=== PATIENT | male | born 1935 | race Caucasian/White ===

== ENCOUNTER 2016-12-08 06:16 | Inpatient (IN) | payer MEDICARE, BC ==
[2016-11-10 11:10] VITALS: BMI 33.7
[2016-11-17 11:14] VITALS: BP_SYST 142; RESP 20; TEMP 99.7
[2016-11-17 11:16] VITALS: Ht 160 cm; Wt 86.2 kg
[2016-12-08] VITALS (19 sets, daily range): BP systolic 90–144; RESP 16–22; TEMP 97.2–100.5
[~2016-12-08] VITALS: Ht 160 cm; Wt 86.2 kg
[2016-12-08] MEDS ORDERED: TRANEXAMIC ACID IV ONE ×4 (06:25)
[2016-12-08] MEDS ORDERED: ROPIVACAINE 0.5% 134 MG, EPINEPHrine 1:1,000 0.2 MG, KETOROLAC INJ 30 MG, HYDROMORPHONE... SUBQ ONE ×4 (06:25)
[2016-12-08] MEDS ORDERED: SODIUM CHLORIDE 0.9% IV ONE ×4 (06:25)
[2016-12-08] MEDS ORDERED: LACT RINGERS 1,000 ML IV SCH ×2 (06:30→08:50)
[2016-12-08] MEDS ORDERED: LIDOCAINE 1% BUFFERED 1 ML SYR INTRADERM PRN (06:30)
[2016-12-08] MEDS ORDERED: GLYCOPYRROLATE 0.2 MG/ML VIAL IV ONE (06:30)
[2016-12-08] MEDS ORDERED: MIDAZOLAM 2 MG/2 ML INJ IV ONE (06:30)
[2016-12-08] MEDS ORDERED: MEPERIDINE 25 MG/ML IV PRN (07:05)
[2016-12-08] MEDS ORDERED: DILAUDID 1 MG/ML AMP IV PRN (07:05)
[2016-12-08] MEDS ORDERED: OXYCODONE 5 MG TAB PO PRN (07:05)
[2016-12-08] MEDS ORDERED: ONDANSETRON 4 MG VIAL IV PRN (07:05)
[2016-12-08] MEDS ORDERED: KETOROLAC 30 MG/ML VIAL IV PRN (08:50)
[2016-12-08] MEDS ORDERED: DIPHENHYDRAMINE 25 MG CAP PO PRN (08:50)
[2016-12-08] MEDS ORDERED: ACETAMINOPHEN 325 MG TAB PO PRN (08:50)
[2016-12-08] MEDS ORDERED: NEB-ALBUTEROL 2.5 MG/3 ML INH ONE (09:25)
[2016-12-08] MEDS: MAG HYDROX 30 ML UDC PO SCH (10:00)
[2016-12-08] MEDS: DOCUSATE SOD 100 MG CAP PO SCH ×2 (10:00→20:03)
[2016-12-08] MEDS ORDERED: KETAMINE INJ 50 MG/ML VIAL IV ONE (10:35)
[2016-12-08] MEDS ORDERED: FENTANYL 100 MCG/2 ML AMP IV ONE (10:35)
[2016-12-08] MEDS ORDERED: ONDANSETRON 4 MG VIAL IV PUSH ONE (10:35)
[2016-12-08] MEDS ORDERED: LIDOCAINE 2% SYR 5 ML IV ONE (10:35)
[2016-12-08] MEDS ORDERED: KETOROLAC 30 MG/ML VIAL IV ONE (10:35)
[2016-12-08] MEDS ORDERED: DEXAMETHASONE 4 MG/ML VIAL IV ONE (10:35)
[2016-12-08] MEDS ORDERED: PROPOFOL 20 ML VIAL IV ONE (10:35)
[2016-12-08] MEDS ORDERED: SUGAMMADEX 200 MG/2 ML VIAL IV ONE (10:35)
[2016-12-08] MEDS ORDERED: ACETAMINOPHEN 1,000 MG/100 ML IV ONE (10:35)
[2016-12-08] MEDS ORDERED: ROCURONIUM 50 MG VIAL IV ONE (10:35)
[2016-12-08] MEDS: POLYETHYLENE GLYCOL 17 GM PACKET PO SCH (10:56)
[2016-12-08] MEDS: SENNA 8.6 MG TAB PO SCH ×2 (10:56→20:03)
[2016-12-08] MEDS: DUONEB INH SCH ×4 (11:00→23:14)
[2016-12-08] MEDS ORDERED: CEFAZOLIN 2,000 MG in SODIUM CHLORIDE 0.9% 100 ML IV SCH (12:00)
[2016-12-08] MEDS: CEFAZOLIN 2,000 MG in SODIUM CHLORIDE 0.9% 100 ML IV SCH ×2 (12:13→18:07)
[2016-12-08] MEDS: FAMOTIDINE 20 MG TAB PO SCH ×2 (14:38→20:03)
[2016-12-08] MEDS: OXYCODONE/APAP 5/325 TAB PO PRN ×2 (17:46→21:02)
[2016-12-08] MEDS: GABAPENTIN 600 MG TAB PO SCH ×2 (18:39→20:03)
[2016-12-08] MEDS: DUTASTERIDE 0.5 MG CAP PO SCH (20:03)
[2016-12-08] MEDS: PANTOPRAZOLE 40 MG TAB PO SCH (20:03)
[2016-12-08] MEDS: DILAUDID 1 MG/ML AMP IV PRN ×2 (20:04→22:21)
[2016-12-08] MEDS: TEMAZEPAM 15 MG CAP PO PRN (21:02)
[2016-12-08] MEDS ORDERED: KETOROLAC 15 MG/ML VIAL IV ONE (21:35)
[2016-12-09] MEDS: CEFAZOLIN 2,000 MG in SODIUM CHLORIDE 0.9% 100 ML IV SCH ×2 (00:55→07:04)
[2016-12-09] MEDS: DILAUDID 1 MG/ML AMP IV PRN ×6 (00:58→22:35)
[2016-12-09] MEDS: DUONEB INH SCH ×6 (02:48→22:41)
[2016-12-09 03:35] VITALS: BP_SYST 97; RESP 20; TEMP 98.3
[2016-12-09] MEDS: ENOXAPARIN 40 MG/0.4 ML SYR SUBQ SCH (04:58)
[2016-12-09] MEDS: PANTOPRAZOLE 40 MG TAB PO SCH ×2 (07:04→15:57)
[2016-12-09 07:38] VITALS: BP_SYST 129; RESP 18; TEMP 99.7
[2016-12-09] MEDS: DOCUSATE SOD 100 MG CAP PO SCH ×2 (08:22→22:36)
[2016-12-09] MEDS: FAMOTIDINE 20 MG TAB PO SCH ×2 (08:23→22:36)
[2016-12-09] MEDS: MAG HYDROX 30 ML UDC PO SCH (08:23)
[2016-12-09] MEDS: GABAPENTIN 600 MG TAB PO SCH ×4 (08:23→22:36)
[2016-12-09] MEDS: POLYETHYLENE GLYCOL 17 GM PACKET PO SCH (08:23)
[2016-12-09] MEDS: SENNA 8.6 MG TAB PO SCH ×2 (08:23→22:36)
[2016-12-09] MEDS: OXYCODONE/APAP 5/325 TAB PO PRN ×3 (08:29→22:37)
[2016-12-09] MEDS ORDERED: BISACODYL 10 MG SUPP RECTAL PRN (10:45)
[2016-12-09] MEDS ORDERED: FLEET ENEMA 132 ML BTL RECTAL PRN (10:45)
[2016-12-09 11:48] VITALS: BP_SYST 105; RESP 18; TEMP 98.7
[2016-12-09] MEDS ORDERED: MISSING DOSE XX ONE (12:25)
[2016-12-09] MEDS: OMNIPAQUE 240 MG/ML, 50 ML PO SCH ×2 (14:50→17:07)
[2016-12-09 15:51] VITALS: BP_SYST 124; RESP 18; TEMP 99.2
[2016-12-09 19:52] VITALS: BP_SYST 134; RESP 16; TEMP 98.2
[2016-12-09] MEDS ORDERED: OPTIRAY 350 100 ML VIAL HMH IV ONE (21:07)
[2016-12-09 22:34] VITALS: BP_SYST 111; RESP 18; TEMP 98.5
[2016-12-09] MEDS: TEMAZEPAM 15 MG CAP PO PRN (22:35)
[2016-12-09] MEDS: DUTASTERIDE 0.5 MG CAP PO SCH (22:36)
[2016-12-10] MEDS: DUONEB INH SCH ×6 (02:06→22:54)
[2016-12-10] MEDS: DILAUDID 1 MG/ML AMP IV PRN ×3 (02:24→06:33)
[2016-12-10 02:59] VITALS: BP_SYST 124; RESP 16; TEMP 98.7
[2016-12-10] MEDS: ENOXAPARIN 40 MG/0.4 ML SYR SUBQ SCH (06:34)
[2016-12-10] MEDS: PANTOPRAZOLE 40 MG TAB PO SCH ×2 (06:35→16:29)
[2016-12-10 07:45] VITALS: BP_SYST 126; RESP 18; TEMP 98.5
[2016-12-10] MEDS: MAG HYDROX 30 ML UDC PO SCH (09:05)
[2016-12-10] MEDS: GABAPENTIN 600 MG TAB PO SCH ×4 (09:05→21:49)
[2016-12-10] MEDS: DOCUSATE SOD 100 MG CAP PO SCH ×2 (09:05→21:50)
[2016-12-10] MEDS: POLYETHYLENE GLYCOL 17 GM PACKET PO SCH (09:05)
[2016-12-10] MEDS: SENNA 8.6 MG TAB PO SCH ×2 (09:05→21:50)
[2016-12-10] MEDS: FAMOTIDINE 20 MG TAB PO SCH ×2 (09:05→21:49)
[2016-12-10 12:45] VITALS: BP_SYST 159; RESP 18; TEMP 97.8
[2016-12-10] MEDS: OXYCODONE/APAP 5/325 TAB PO PRN (12:46)
[2016-12-10 15:00] VITALS: BP_SYST 126; RESP 20; TEMP 99
[2016-12-10 19:22] VITALS: BP_SYST 139; RESP 16; TEMP 98.4
[2016-12-10] MEDS ORDERED: SALINE FLUSH 10 ML FLUSH PRN (19:40)
[2016-12-10] MEDS ORDERED: SODIUM CHLORIDE 0.9% FLUSH BAG 500 ML IV PRN (19:40)
[2016-12-10] MEDS: SALINE FLUSH 10 ML FLUSH SCH (21:49)
[2016-12-10] MEDS: DUTASTERIDE 0.5 MG CAP PO SCH (21:49)
[2016-12-10] MEDS: ONDANSETRON 4 MG VIAL IV PRN (21:50)
[2016-12-10 22:44] VITALS: BP_SYST 152; RESP 16; TEMP 99.8
[2016-12-11] MEDS: DUONEB INH SCH ×4 (02:25→14:52)
[2016-12-11 02:30] VITALS: BP_SYST 144; RESP 18; TEMP 98
[2016-12-11] MEDS: OXYCODONE/APAP 5/325 TAB PO PRN ×2 (05:56→16:25)
[2016-12-11] MEDS: PANTOPRAZOLE 40 MG TAB PO SCH ×2 (05:56→16:17)
[2016-12-11] MEDS: ENOXAPARIN 40 MG/0.4 ML SYR SUBQ SCH (05:57)
[2016-12-11] MEDS ORDERED: MISSING DOSE XX ONE ×2 (07:25→13:30)
[2016-12-11] MEDS: SENNA 8.6 MG TAB PO SCH (07:59)
[2016-12-11] MEDS: SALINE FLUSH 10 ML FLUSH SCH (07:59)
[2016-12-11] MEDS: MAG HYDROX 30 ML UDC PO SCH (07:59)
[2016-12-11] MEDS: POLYETHYLENE GLYCOL 17 GM PACKET PO SCH (07:59)
[2016-12-11] MEDS: FAMOTIDINE 20 MG TAB PO SCH (08:00)
[2016-12-11] MEDS: DOCUSATE SOD 100 MG CAP PO SCH (08:00)
[2016-12-11] MEDS: GABAPENTIN 600 MG TAB PO SCH ×2 (08:00→13:59)
[2016-12-11 08:49] VITALS: BP_SYST 129; RESP 20; TEMP 99.2
[2016-12-11 11:51] VITALS: BP_SYST 123; RESP 20; TEMP 97.9
[2016-12-11 15:49] VITALS: BP_SYST 138; RESP 20; TEMP 98.9
[2016-12-11 15:51] VITALS: BP_SYST 123; RESP 18; TEMP 98.9
[2016-12-11] MEDS: ONDANSETRON 4 MG VIAL IV PRN (18:10)
== END 2016-12-11 18:06 | DRG 470 ==
LOC: ENRESERVTM → ENRESERVDT → SDS 06:16 → ENPENDDIS 06:16 → 2NO 09:44
PROVIDERS: ADMIT Internal Medicine; ATTEND Internal Medicine
PROC: 0SR904Z Replacement of Right Hip Joint with Ceramic on Polyethylene Synthetic Substitute, Open Approach (ICD-10-PCS; principal; 2016-12-08 07:10)
DX: M16.11 Unilateral primary osteoarthritis, right hip (principal); E87.0 Hyperosmolality and hypernatremia; D69.6 Thrombocytopenia, unspecified; I10 Essential (primary) hypertension; F10.20 Alcohol dependence, uncomplicated; Z79.82 Long term (current) use of aspirin; Z87.891 Personal history of nicotine dependence; Z89.512 Acquired absence of left leg below knee
CPT/HCPCS: 74177; 76000; 80053; 80074; 82607; 82728; 82746; 83010; 83540; 83615; 84466; 85007; 85027; 86850; 86900; 86901; 87389; 88184; 88185; 88188; 88189; 94640; 94762; 94799